=== PATIENT | male | born 1980 | race Caucasian/White ===

== ENCOUNTER 2023-11-01 09:26 | Emergency (ER) | payer OTHER ==
[2023-11-01] MEDS ORDERED: Dexamethasone 10 MG/ML VIAL ONE (10:24)
== END 2023-11-01 10:40 | disposition home or self-care (01) ==
LOC: MADERS 09:26
DX: R21 Rash and other nonspecific skin eruption (principal)
CPT/HCPCS: 96372; 99282; J1100